=== PATIENT | male | born 1960 | race Caucasian/White ===

== ENCOUNTER → 2017-12-17 | Outpatient (CLI) | payer OTHER ==
[~2017-12-17] VITALS: Ht 175.3 cm; Wt 88.5 kg
[~2017-12-17] MED LIST: ASPIRIN EC81 M1 PO; COUMADIN 3 MG TA3 M1 PO; COUMADIN 4 MG TA4 M1 PO; COUMADIN 5 MG TA5 M1 PO; FLOMAX; FORTESTA60 GM; GABAPENTIN100 MG; LIDODERM1 EACH TOP; LISINOPRIL2.5 MG PO; MULTIVITAMINS1 EAC7 PO; PROTONIX40 M1 PO; VENLAFAXINE HC150 MG PO
[2017-12-17 10:57] VITALS: BP 136/64
[2017-12-17 11:15] LABS: HEMATOCRIT 44.4 % (42.0-52.0); HEMOGLOBIN 15.1 gm/dL (14.0-18.0); MCH 30.7 pg (26.0-34.0); MCV 90.5 fL (80.0-100.0); MPV 7.3 fl. (7.2-11.1); RBC 4.9 mil/uL (4.50-6.00); RDW-CV 13.6 % (10.5-14.5); WBC 5.5 thou/uL (4.0-11.0)
[2017-12-17 11:24] LABS: ANION GAP 6 mmol/L (7-16); BUN 21 mg/dL (7-18); CALCIUM 8.6 mg/dL (8.5-10.1); CHLORIDE 103 mmol/L (98-107); CO2 30 mmol/L (21-32); CREATININE 1.1 mg/dL (0.6-1.3); GLUCOSE 114 mg/dL (70-99); POTASSIUM 4.4 mmol/L (3.5-5.1); SODIUM 139 mmol/L (136-145)
[2017-12-17 11:25] LABS: APTT 26.3 Seconds (25.0-31.3); INR 1.1; PROTIME 10.4 Seconds (9.20-11.50)
[2017-12-17 11:29] LABS: ALBUMIN 3.7 g/dL (3.4-5.0); ALKALINE PHOSPHATASE 89 U/L (46-116); CHOLESTEROL 216 mg/dL (<200); HDL CHOLESTEROL 68 mg/dL (>40); LDL CHOLESTEROL 128 mg/dL (<100); SGOT 21 U/L (15-37); SGPT 30 U/L (30-65); TC:HDL 3.2 Ratio (Not establshd); TOTAL BILIRUBIN 0.6 mg/dL (<0.1-1.0); TOTAL PROTEIN 7.2 g/dL (6.4-8.2); TRIGLYCERIDE 103 mg/dL (<150); VLDL 21 mg/dL (<40)
[2017-12-17 11:32] LABS: SERUM ASSESSMENT Clear
[2017-12-17 14:55] VITALS: BP 109/63
[2017-12-17 15:16] VITALS: BP 119/67
--- NOTE | 2017-12-17 15:19 | EKG ---
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: : 1960 Requested By: Clint Lewis Order Number: [id number] Reading MD: Curt Miranda Measurements Intervals [place] Rate: 81 P: 33 UT: 152 QRS: 9 QRSD: 89 T: 23 QT: 327 QTc: 380 Interpretive Statements Sinus rhythm Ventricular bigeminy Borderline T wave abnormalities Baseline wander in lead(s) V4,V5,V6 Compared to ECG 10/23/2012 10:58:44 T-wave abnormality now present Electronically Signed On 12-17-2017 15:19:19 CDT by Curt Miranda [email or web address] <ELECTRONICALLY SIGNED> By: Curt Miranda MD, [facility] 12/17/17 1519 1201 1201 Curt Miranda MD, [facility] /EPI
[2017-12-17 15:32] VITALS: BP 129/68
[2017-12-17 15:55] VITALS: BP 147/61
--- NOTE | 2017-12-20 17:37 | CARD ---
[address] [address] CARDIAC CATH REPORT Name: SID BENAVIDES Room: [facility]#: [id number] Admission: 12/17/17 Attend Phys: Clint Lewis MD Discharge: Date of : 56 Report #: [id number] THIS REPORT FOR: //name// APPROVED REPORT Study performed: 12/17/2017 13:56:01 Patient Details Patient Status: Out-Patient Room #: The patient is a 57 year-old male Event Personnel Clint Lewis Transformer Assembler, Mikki Carroll RN Residential Support Worker, Philip Lara (R) Monitor, Bert Darden Schmalzbach, Brittany RN Residential Support Worker Procedures Performed Left Heart Cath w/or w/o Coronaries Procedure Narrative A Slender Glidesheath sheath was inserted into the Right Radial Artery. Coronary angiography was performed using coronary diagnostic catheters. The right coronary system was accessed and visualized with a Diagnostic DCR: [place] 4.0 5fr catheter. The left coronary system was accessed and visualized with a Diagnostic DCR: [place] 4.0 5fr catheter. Closure device was deployed with a Fr Regular VascBand. The patient tolerated the procedure well and there were no complications associated with the procedure. Intraoperative Conscious Sedation Sedation start time: 14:31 Case end Time: 14:44 Fentanyl 50 mcg Versed 2 mg Fluoro Time: 2.2 minutes Dose: DAP 18964 cGycm2 697 mGy Contrast Type and Amount: Visipaque 60 ml Diagnostic Cath Left Main Normal. LAD Normal proximally with 1% narrowing in its midportion and normal distally. Diagonal 1 Large branched and normal[place] [address] CARDIAC CATH REPORT Name: SID BENAVIDES Room: [facility]#: [id number] Admission: 12/17/17 Attend Phys: Clint Lewis MD Discharge: Date of : 56 Report #: [id number] OM1 Normal. OM2 Normal in branched. Right Coronary Normal. R PDA Normal. RPLV Normal and branched. Hemodynamics The aortic pressure is 95/66 mmHg with a mean of 77 mmHg. Conclusion 1. Minimal coronary artery disease as outlined above. 2. 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 Recommendations 1. Continue current medical management. 2. Risk factor modification. <ELECTRONICALLY SIGNED> By: Clint Lewis MD, FACC 12/20/17 1736 1736 1736Michaemandeep Lewis MD, FACC /INF
--- NOTE | 2018-01-21 15:00 | H ---
[address] [address] HISTORY AND PHYSICAL Name: SID BENAVIDES Room: [facility]#: [id number] Admission: 12/17/17 Attend Phys: Clint Lewis MD Discharge: Date of : 56 Report #: [id number] THIS REPORT FOR: //name// CC: FAM unknown Clint Lewis INDICATION: Chest pain and abnormal CV functional study. HISTORY OF PRESENT ILLNESS: The patient is a very pleasant 57-year-old gentleman with history of aortic valve replacement [address] a [employer] aortic valve. He underwent recent stress testing to evaluate complaints of chest pain that showed evidence of stress-induced ischemia. He is being admitted for elective coronary angiography and left heart catheterization. He continues to have some exertional symptomatology, but is otherwise stable. PAST MEDICAL HISTORY: 1. Aortic valve replacement remotely. 2. Long-term use of anticoagulants. 3. History of premature ventricular contractions. FAMILY HISTORY: Noncontributory. SOCIAL HISTORY: The patient is a lifelong nonsmoker. He does not drink alcohol. ALLERGIES: None documented. CURRENT MEDICATIONS: Aspirin 81 mg daily, Lidoderm patch p.r.n., multivitamin 1 tablet daily, Protonix 40 mg daily, Flomax 0.4 mg daily, venlafaxine 150 mg daily, Coumadin 5 mg as directed for INR. REVIEW OF SYSTEMS: A 14-point review of systems was negative with the exception of complaints above. PHYSICAL EXAMINATION: VITAL SIGNS: Stable. Blood pressure 130/76, pulse is 85 and regular. GENERAL: This is a pleasant gentleman in no distress. Mood and affect appropriate. HEENT: Extraocular muscles intact. Mucous membranes are moist. NECK: Shows no jugular venous distension. There are no carotid bruits. CHEST: Reveals clear lung schwartz without wheezes, rales or rhonchi. CARDIOVASCULAR: Reveals a regular rhythm, without murmur. ABDOMEN: Reveals normal bowel sounds. The abdomen is soft and nontender. EXTREMITIES: Shows no clubbing, cyanosis or edema. IMPRESSION AND RECOMMENDATIONS: 1. Chest pain with abnormal CV functional [place] [id number] HISTORY AND PHYSICAL Name: SDI BENAVIDES Room: [facility]#: [id number] Admission: 12/17/17 Attend Phys: Clint Lewis MD Discharge: Date of : 56 Report #: [id number] heart catheterization and coronary angiography. Further intervention will be pending the results of that study. 2. Presence of prosthetic aortic valve. Resume anticoagulation post-intervention. 3. Premature ventricular contractions, presently stable. <ELECTRONICALLY SIGNED> By: Clint Lewis MD, [facility] 01/21/18 1500 1412 1439[facility] Doris Lewis MD, FACC /nt
== END | disposition home or self-care (01) ==
LOC: M.CL 10:37
PROVIDERS: Internal Medicine Cardiovascular Disease
DX: I25.10 Atherosclerotic heart disease of native coronary artery without angina pectoris (principal); R94.39 Abnormal result of other cardiovascular function study; F17.220 Nicotine dependence, chewing tobacco, uncomplicated; Z79.82 Long term (current) use of aspirin; Z79.899 Other long term (current) drug therapy; Z79.01 Long term (current) use of anticoagulants